=== PATIENT | male | born 1965 | race Caucasian/White ===

== ENCOUNTER → 2016-03-15 | Outpatient (CLI) | payer OTHER ==
--- NOTE | 2016-03-15 11:57 | CT ---
CT Scan of the Urinary Tract (Abdomen and Pelvis Without Contrast) Clinical Indications: Left flank pain in a 50-year-old male; evaluate for obstructive uropathy. Technique: Multidetector helical CT imaging was performed from the lung bases to the urinary bladder without contrast. Axial images are obtained at 1.25 mm thickness. Dose reduction techniques were ut ilized. Findings: Abdomen: There is no nephrolithiasis. There is dilatation of the left ureter throughout its course in the abdomen and into the pelvis where there is a 7 x 4 mm distal left ureteral calculus several ce ntimeters from the ureterovesical junction. There is left hydronephrosis and there is edema in the le ft perinephric fat. The imaged noncontrast portions of the liver, spleen, gallbladder, pancreas and adrenals are unremar kable. The aorta tapers normally with minimal calcified plaque formation noted. The lung bases are clear. Pelvis: The bladder contour is normal and the distal ureters are not dilated. Surgical clips in the r ight lower quadrant presumably correlate to prior appendectomy. There is no free fluid seen. Impression: 1. 7 x 4 mm distal left ureteral calculus with associated left-sided obstructive uropathy. 2. See above report for additional findings. A preliminary report was called to the patient's healthcare provider, Dr. Brown. This CT examination is specifically designed to evaluate patients who are clinically suspected of hav ing acute obstructive uropathy. This examination does not use radiographic contrast, and as such, pr ovides only a limited evaluation of the abdomen, pelvis and retroperitoneum.
== END ==
LOC: FIMAGING 10:32
PROVIDERS: ATTEND Family Medicine
DX: N20.1 Calculus of ureter (principal); N13.9 Obstructive and reflux uropathy, unspecified; N13.30 Unspecified hydronephrosis

== ENCOUNTER 2016-03-17 12:41 | Day surgery (SDC) | payer OTHER ==
[~2016-03-17 12:41] MED LIST: ceFAZolin 2 GM in D5W 100 ML IV ONE
[2016-03-17] MEDS ORDERED: LIDOCAINE 1% 5 ML SDV ID PRN (13:02)
[2016-03-17] MEDS ORDERED: LR 1,000 ML IV ONE (13:02)
[2016-03-17] MEDS ORDERED: LIDOCAINE 1% 5 ML SDV ONE (13:04)
[2016-03-17] MEDS ORDERED: CEFAZOLIN 2 GM/DEXTROSE/100 ML BAG IV ONE (13:04)
[2016-03-17] MEDS ORDERED: IOPAMIDOL (ISOVUE-M 300) 15 ML VIAL IV ONE (14:07)
[2016-03-17] MEDS ORDERED: MIDAZOLAM 2 MG/2 ML VIAL ONE (14:22)
[2016-03-17] MEDS ORDERED: fentaNYL 100 MCG/2 ML INJ ONE (14:29)
[2016-03-17] MEDS ORDERED: PROPOFOL 200 MG/20 ML VIAL ONE ×2 (14:30→14:42)
[2016-03-17] MEDS ORDERED: HYDROCODONE/APAP 5/325 TAB ONE (16:15)
--- NOTE | 2016-03-17 17:03 | DX ---
Intraoperative fluoroscopy History: Left ureteral stone removal Dose = 498.6 mGy Findings: A spot film at 15:06 demonstrates a left ureteral guidewire coursing from the pelvis into t he left upper pole collecting system. There is caliectasis present. A stone is not identified overlyi ng the guidewire. A spot film at 15 : 09 demonstrates a left ureteral stent coursing between the uppe r pole calyx and the upper posterior urethra. Impression: Left renal caliectasis. The caudal portion of the left ureteral stent is coursing into th e posterior urethra.
--- NOTE | 2016-03-17 20:26 | GOP ---
[f rep st] OPERATIVE REPORT DATE OF OPERATION: 03/17/2016 SURGEON: All Dove MD PREOPERATIVE DIAGNOSIS: Left ureteral calculus. POSTOPERATIVE DIAGNOSIS: Left ureteral calculus. PROCEDURE PERFORMED: Left ureteroscopy with laser lithotripsy and basket extraction of stone fragmen ts with placement of indwelling ureteral stent. FINDINGS: INDICATIONS: The patient is a 50-year-old male with a 5 x 7 mm lower left ureteral stone x6 weeks th at he has been unable to pass. After discussing options, he would like to undergo stone removal. DESCRIPTION OF PROCEDURE: After informed consent, with general LMA anesthesia, the patient was place d in the lithotomy position with his genitalia sterilely prepped and draped. A semirigid ureteroscop e was advanced over a Sensor guidewire into the distal ureter. The distal ureter was impassible, so a 5 mm balloon dilator was used to dilate this area. The scope was then advanced to the more proxima l end where the stone was identified. It was fragmented with a 200 micron holmium laser fiber using 6.4 mcclellan of energy. Fragments were extracted with a nitinol basket and left within the bladder due to his enlarged prostate. The scope was advanced proximally, at which point a bifid upper ureteral c ollecting system was noted. No other stone fragments were seen, so the scope was removed, and a 6-Fr ench Multi-Link ureteral stent positioned. A withdrawal string was left in place. The patient was awakened, transferred to the recovery room in stable condition. There were no intrao perative complications, blood loss, or specimens. /[id number]/MODL
== END 2016-03-17 16:50 | disposition home or self-care (01) ==
LOC: FSGY 12:41
PROVIDERS: ATTEND Urology
PROC: 0T778DZ Dilation of Left Ureter with Intraluminal Device, Via Natural or Artificial Opening Endoscopic (ICD-10-PCS; principal; 2016-03-17 14:15)
PROC: 0TC78ZZ Extirpation of Matter from Left Ureter, Via Natural or Artificial Opening Endoscopic (ICD-10-PCS; principal; 2016-03-17 14:15)
DX: N20.1 Calculus of ureter (principal); K21.9 Gastro-esophageal reflux disease without esophagitis; F31.9 Bipolar disorder, unspecified; C92.10 Chronic myeloid leukemia, BCR/ABL-positive, not having achieved remission; R73.03 Prediabetes; E78.00 Pure hypercholesterolemia, unspecified
CPT/HCPCS: 52325; 52332; 76001; C1769; C1894; C2625; J0690; J2250; J2704; J3010; Q9967

== ENCOUNTER → 2016-04-20 | Outpatient (CLI) | payer OTHER | LOC: FIMAGING 09:21 | PROVIDERS: ATTEND Urology | DX: Z09 Encounter for follow-up examination after completed treatment for conditions other than malignant neoplasm (principal) ==

== ENCOUNTER → 2017-10-19 | Outpatient (CLI) | payer OTHER | LOC: CIMAGING 14:04 | PROVIDERS: ATTEND Family Medicine | DX: M53.86 Other specified dorsopathies, lumbar region (principal); M51.35 Other intervertebral disc degeneration, thoracolumbar region | CPT/HCPCS: 72070-PO; 72100-PO ==